=== PATIENT | male | born 1990 | race Caucasian/White ===

== ENCOUNTER 2018-08-03 07:11 | Emergency (ER) | payer MEDICAID, OTHER ==
--- NOTE | 2018-08-03 07:39 | EDM.PDOC ---
ED HPI GENERAL MEDICAL PROBLEM - General Chief Complaint: General Stated Complaint: FLU? [id number] Time Seen by Provider: 08/03/18 07:32 Source of Information: Reports: Patient, RN, RN Notes Reviewed History Limitations: Reports: No Limitations - History of Present Illness INITIAL COMMENTS - FREE TEXT/NARRATIVE: Pt presents to ER with c/o fever, chills, body aches, dry cough, headache. He states he has been developing symptoms over the past 36 hours. He states he gets very light headed and fatigued, fell to his knees at one point. Admits to nausea and diarrhea, no vomiting. Admits to chest tightness and SOB at times. Onset: Gradual Duration: Constant, Getting Worse Location: Reports: Chest Quality: Reports: Ache Severity: Moderate Improves with: Reports: None Worsens with: Reports: None Associated Symptoms: Reports: Chest Pain, Cough, Fever/Chills, Loss of Appetite , Malaise, Nausea/Vomiting, Shortness of Breath, Weakness. Denies: cough w sputum Generalized Pain Score (Numeric/FACES): 4 - Related Data Allergies Allergy/AdvReac Type Severity Reaction Status Date / Time No Known Allergies Allergy Verified 08/03/18 07:15 Home Meds: Home Meds Ibuprofen 200 mg PO PRN 08/03/18 [History] Past Medical History HEENT History: Reports: None Cardiovascular History: Reports: None Respiratory History: Reports: None Genitourinary History: Reports: None Neurological History: Reports: None Psychiatric History: Reports: None Endocrine/Metabolic History: Reports: None Hematologic History: Reports: None Immunologic History: Reports: None Oncologic (Cancer) History: Reports: None Dermatologic History: Reports: None - Infectious Disease History Infectious Disease History: Reports: None - Past Surgical History Head Surgeries/Procedures: Reports: None GI Surgical History: Reports: Hernia, Abdominal Musculoskeletal Surgical History: Reports: Other (See Below) Other Musculoskeletal Surgeries/Procedures:: compartment syndrome left leg, skin graft left leg Social & Family History - Family History Family Medical History: Noncontributory - Tobacco Use Smoking Status *Q: Current Every Day Smoker Years of Tobacco use: 12 Packs/Tins Daily: 1 - Caffeine Use Caffeine Use: Reports: Coffee, Energy Drinks, Soda - Recreational Drug Use Recreational Drug Use: No ED ROS GENERAL - Review of Systems Review Of Systems: ROS reveals no pertinent complaints other than HPI. ED EXAM, GENERAL - Physical Exam Exam: See Below Exam Limited By: No Limitations General Appearance: Alert, WD/WN, No Apparent Distress Eye Exam: Bilateral Eye: EOMI, Normal Inspection Ears: Normal External Exam, Hearing Grossly Normal Nose: Normal Inspection Throat/Mouth: Normal Inspection, Normal Voice, No Airway Compromise Head: Atraumatic, Normocephalic Neck: Normal Inspection, Supple, Non-Tender, Full Range of Motion Respiratory/Chest: No Respiratory Distress, Lungs Clear, Normal Breath Sounds, No Accessory Muscle Use, Chest Non-Tender Cardiovascular: Normal Peripheral Pulses, Regular Rate, Rhythm, No Edema, No Gallop, No JVD, No Murmur, No Rub Peripheral Pulses: 2+: Radial (L), Radial (R) GI/Abdominal: Normal Bowel Sounds, Soft, Non-Tender (Male) Exam: Deferred Rectal (Males) Exam: Deferred Back Exam: Normal Inspection, Full Range of Motion Extremities: Normal Inspection, Normal Range of Motion, Non-Tender, Normal Capillary Refill, No Pedal Edema Neurological: Alert, Oriented, CN II-XII Intact, Normal Cognition, Normal Gait, Normal Reflexes, No Motor/Sensory Deficits Psychiatric: Normal Affect, Normal Mood Skin Exam: Warm, Dry, Intact, Normal Color, No Rash Lymphatic: No Adenopathy Course - Vital Signs Last Recorded V/S: Last Vital Signs Temp 101.4 F H 08/03/18 07:17 Pulse 88 08/03/18 07:17 Resp 18 08/03/18 07:17 BP 153/79 H 08/03/18 07:17 Pulse Ox 99 08/03/18 07:17 - Orders/Labs/Meds Labs: Influenza A: Positive Influenza B: Negative Departure - Departure Time of Disposition: 08:05 Disposition: Home, Self-Care 01 Condition: Fair Clinical Impression: Influenza A - Discharge Information *PRESCRIPTION DRUG MONITORING PROGRAM REVIEWED*: No *COPY OF PRESCRIPTION DRUG MONITORING REPORT IN PATIENT MARCE: No Instructions: Influenza, Adult, [id number] Forms: ED Department Discharge Additional Instructions: RX: Tamiflu May use tylenol and/or ibuprofen as directed for fever and pain Drink plenty of water Rest No work until fever free for 24 hours, or feeling better Follow up with your primary care facility
== END 2018-08-03 08:17 | disposition home or self-care (01) ==
LOC: DL.ED 07:11
DX: J10.1 Influenza due to other identified influenza virus with other respiratory manifestations (principal); F17.210 Nicotine dependence, cigarettes, uncomplicated
CPT/HCPCS: 87804; 99283

== ENCOUNTER 2024-01-04 21:23 | Inpatient (IN) | payer SELFPAY ==
[2024-01-04] MEDS: Acetaminophen 325 MG Tab PO ONE (22:47)
[2024-01-04 23:00] LABS: BASOPHILS PERCENT AUTO 0.3 % (0.0-1.0); EOSINOPHILS PERCENT AUTO 0.4 % (1.0-3.0); HEMATOCRIT 43.5 % (40.0-54.0); HEMOGLOBIN 14.1 g/dL (14.0-18.0); LYMPHOCYTES PERCENT AUTO 4.7 % (20.5-50.1); MEAN CORPUSCULAR HEMOGLOBIN 29.6 pg (27.0-34.0); MEAN CORPUSCULAR HGB CONC 32.4 g/dL (33.0-35.0); MEAN CORPUSCULAR VOLUME 91.2 fL (80-100); MONOCYTES PERCENT AUTO 4.3 % (2-8); NEUTROPHILS PERCENT AUTO 90.3 % (42.2-75.2); PLATELET COUNT,PLT 214 10^3/uL (150-450); RED BLOOD CELL COUNT 4.77 10^6/uL (4.6-6.2); WHITE BLOOD CELL COUNT,WBC 14.9 10^3/uL (5.0-10.0)
[2024-01-04 23:14] LABS: A/G RATIO 0.9; ALBUMIN 3.8 g/dL (3.4-5.0); ANION GAP 13.1 mEq/L (7-13); BILIRUBIN TOTAL 1.1 mg/dL (0.2-1.0); C-REACTIVE PROTEIN 13.42 ng/dL (<=0.50); CALCIUM 9.3 mg/dL (8.5-10.1); CREATININE 1.27 mg/dL (0.70-1.30); EST CRCL DRUG DOSING (CG) 97.95 mL/min; POTASSIUM,K 4.1 mmol/L (3.5-5.1)
[2024-01-05] MEDS: cefTRIAXone 1 GM Vial IVPUSH ONE (00:26)
[2024-01-05] MEDS: Acetaminophen 325 MG Tab PO ONE (08:07)
[2024-01-05] MEDS ORDERED: Ibuprofen 600 MG Tab PO PRN (09:12)
[2024-01-05] MEDS ORDERED: Ondansetron 4 MG/2 ML SDV IVPUSH PRN (09:12)
[2024-01-05] MEDS: Enoxaparin 40 MG/0.4 ML Syringe SUBCUT SCH (12:51)
[2024-01-05] MEDS: oxyCODONE 5 MG Tab PO PRN (12:52)
[2024-01-05] MEDS: ceFAZolin 1 GM Vial IVPUSH SCH ×2 (12:56→20:27)
[2024-01-05] MEDS: Sodium Chloride 0.9% 100 ML IV PRN (14:25)
[2024-01-05] MEDS: VANCOmycin 1.5 GM/300 ML 300 ML IV SCH (14:27)
[2024-01-05] MEDS: Acetaminophen 325 MG Tab PO PRN (21:56)
[2024-01-06 06:54] LABS: CREATININE 1.02 mg/dL (0.70-1.30); EST CRCL DRUG DOSING (CG) 121.96 mL/min; VANCOMYCIN RANDOM 11.6 ug/mL (No Normal Range)
[2024-01-06] MEDS: Calcium Carbonate 500 MG Tab.Chew PO PRN (15:23)
[2024-01-06] MEDS: Vancomycin 2 GM in Sodium Chloride 0.9% 500 ML IV SCH (16:01)
== END 2024-01-08 01:25 | DRG 603 ==
LOC: DL.ED 21:23 → DL.MS 23:50 → OBSVTOIN 01-07 11:49
PROVIDERS: ADMIT Internal Medicine; ATTEND Internal Medicine
DX: L03.115 Cellulitis of right lower limb (principal); E66.9 Obesity, unspecified; F17.210 Nicotine dependence, cigarettes, uncomplicated; Z86.16 Personal history of COVID-19; Z98.890 Other specified postprocedural states; Z68.32 Body mass index [BMI] 32.0-32.9, adult
CPT/HCPCS: 36415; 73590-RT; 80053; 80202; 82565; 83605; 85025; 86140; 87040; 87070; 87077; 87186; 96365; 96366; 96372; 96374; 96375; 96376; 99222; 99232; 99239; 99284; 99284-25; A9270-GY; G0378; J0690; J0696; J1650; J3370; J3372; J3490; J7030; J7050